=== PATIENT | female | born 2000 | race Caucasian/White ===

== ENCOUNTER 2019-05-13 20:24 | Emergency (ER) | payer BC ==
[~2019-05-13] VITALS: Ht 160 cm; Wt 61.7 kg
[2019-05-13 20:31] VITALS: BP 123/76
[2019-05-13] MEDS ORDERED: LIDOCAINE VISCOUS 2% 20 ML UDC PO ONE (20:45)
[2019-05-13] MEDS ORDERED: NACL 0.9% 1,000 ML IV ONE (20:45)
[2019-05-13] MEDS ORDERED: AMOXICILLIN 500 MG CAP PO ONE (20:45)
[2019-05-13] MEDS ORDERED: KETOROLAC 30 MG/ML VIAL IVP ONE (20:45)
[2019-05-13 22:10] VITALS: BP 129/73
== END 2019-05-13 22:09 | disposition home or self-care (01) ==
LOC: MED 20:24
DX: J02.8 Acute pharyngitis due to other specified organisms (principal); B96.89 Other specified bacterial agents as the cause of diseases classified elsewhere
CPT/HCPCS: 87081; 96372; 99283; J1885; J7030